=== PATIENT | male | born 1970 | race Caucasian/White ===

== ENCOUNTER 2020-02-22 16:48 | Inpatient (IN) | payer MEDICAID ==
[2020-02-22] VITALS (8 sets, daily range): BP systolic 84–127; BP diastolic 54–82
[~2020-02-22] VITALS: Ht 172.7 cm; Wt 95.3 kg
--- NOTE | 2020-02-22 16:55 | NUR ---
[email or web address], from street, drunk, had a bottle of vodka, BS 225. Patient a/ox1, responsive to stimuli, vomiting, attached to the ekg monitor tech.
[2020-02-22] MEDS ORDERED: IV NS 0.9% 1,000 ML BAG IV ONE (17:00)
--- NOTE | 2020-02-22 17:30 | NUR ---
PATIENT FOUND TO BE UNRESPONSIVE AND VOMITING, DR. CRUZ MADE AWARE AND PREP PATIENT FOR INTUBATION.
--- NOTE | 2020-02-22 17:42 | NUR ---
PATIENT PREPPED FOR INTUBATION. ADMINISTERED MEDICATIONS.
[2020-02-22 17:43] LABS: BASOPHILS # (AUTO) 0.1 /CMM (0.0-0.2); BASOPHILS % (AUTO) 0.5 % (0.0-2.0); EOSINOPHILS % (AUTO) 0.1 % (0.0-6.0); HEMATOCRIT 45 % (39-51); HEMOGLOBIN 15.1 g/dL (13.5-17.5); LYMPHOCYTES # (AUTO) 2.1 /CMM (0.8-4.8); MEAN CORPUSCULAR HGB CONC 34 g/dl (31.0-36.0); MEAN CORPUSCULAR VOLUME 91 fL (80-96); MONOCYTES # (AUTO) 0.7 /CMM (0.1-1.30); MONOCYTES % (AUTO) 6.1 % (2.0-12.0); NEUTROPHILS % (AUTO) 75.3 % (43.0-81.0); PLATELET COUNT (AUTO) 466 /CMM (150-450); RED BLOOD CELL COUNT(AUTO) 4.92 MIL/uL (4.5-6.0); WHITE BLOOD COUNT (AUTO) 11.9 K/uL (4.3-11.0)
--- NOTE | 2020-02-22 17:44 | NUR ---
PATIENT INTUBATED CO2 CONFIRMED ET SIZE 7.5 23CM ON THE LIP
--- NOTE | 2020-02-22 17:47 | NUR ---
MOVE SHEET SUBMITTED AND CALLED FOR ICU BED.
[2020-02-22] MEDS ORDERED: PROPOFOL 100 ML ONE ×2 (17:49→20:17)
--- NOTE | 2020-02-22 17:49 | NUR ---
XRAY AT BEDSIDE FOR PLACEMENT VERIFICATION.
[2020-02-22] MEDS: PROPOFOL 100 ML IV PRN ×3 (17:50→22:32)
[2020-02-22] MEDS ORDERED: PRAZ1CAP17 PO (17:56)
[2020-02-22] MEDS ORDERED: FENTANYL CITRAT IV 2,500 MCG in IV NS 0.9% 200 ML IV PRN (18:00)
--- NOTE | 2020-02-22 18:08 | NUR ---
RT PT CAME IN FOR ETOH INTOXICATION INTUBATED WITH DR CRUZ WITH 7.5 ETT SECURED AT 23CM AT LIP CHEST XRAY AND END TIDAL CONFIRMED PLACED ON FOLLOWING SETTINGS AC 18 550 +5 100% PENDING CT SCAN Addendum: 02/22/20 at 1809 by NESTOR RANDALL RT Amended: Links added.
[2020-02-22 18:12] LABS: CALCIUM, SERUM 8.6 mg/dL (8.5-10.1); CARBON DIOXIDE 23 mmol/L (21-32); CHLORIDE 100 mmol/L (98-107); GLUCOSE 137 mg/dL (74-106); POTASSIUM 3.1 mmol/L (3.5-5.1); SODIUM SERUM 138 mmol/L (136-145); UREA NITROGEN, BLOOD 12 mg/dL (7-18)
[2020-02-22 18:17] LABS: APPEARANCE,URINE CLEAR (CLEAR); BILIRUBIN,URINE NEGATIVE (NEGATIVE); BLOOD, URINE NEGATIVE Ery/uL (NEGATIVE); COLOR,URINE YELLOW (YELLOW); LEUKOCYTE ESTERASE ,URINE NEGATIVE (NEGATIVE); NITRITE, URINE NEGATIVE (NEGATIVE); PROTEIN,URINE NEGATIVE (NEGATIVE); UGLUCOSE NEGATIVE (NEGATIVE); UROBILINOGEN,URINE 0.2 EU/dL (0.2)
[2020-02-22 18:26] LABS: ALANINE AMINOTRANSFERASE 28 U/L (12-78); ALBUMIN 4.2 g/dL (3.4-5.0); ALCOHOL, BLOOD 489 mg/dL (0-0); ALKALINE PHOSPHATASE 78 U/L (46-116); ASPARTATE AMINOTRANSFERASE 17 U/L (15-37); BILIRUBIN,TOTAL 0.3 mg/dL (0.2-1.0)
[2020-02-22 18:27] LABS: ACETAMINOPHEN < 2 ug/ml (10-30)
--- NOTE | 2020-02-22 18:28 | NUR ---
patient came back from CT.
[2020-02-22] MEDS ORDERED: ROCURONIUM BROMIDE 50 MG/5 ML IV ONE ×3 (18:30→19:55)
[2020-02-22] MEDS ORDERED: ETOMIDATE 2 MG/ML VIAL IV ONE ×3 (18:30→19:55)
--- NOTE | 2020-02-22 18:40 | NUR ---
bed assigned= [id number]
[2020-02-22] MEDS ORDERED: POTASSIUM CL. PREMIX PERIPHER. 200 ML ONE (18:53)
[2020-02-22] MEDS ORDERED: PIPERACILLIN /TAZOBACTAM 3.375 G in IV D5W 50 ML IV ONE (19:00)
[2020-02-22] MEDS ORDERED: VANCOMYCIN 1 GM in IV D5W 250 ML IV ONE (19:00)
[2020-02-22] MEDS: POTASSIUM CL. PREMIX PERIPHER. 50 ML IV SCH ×4 (19:09→22:33)
--- NOTE | 2020-02-22 19:21 | NUR ---
REPORT GIVEN TO TAMARA LITTLE FOR GAYLE.
[2020-02-22 19:27] LABS: ABG BASE EXCESS -4.2 mmol/L; ABG OXYGEN SATURATION 98.6 % (92.0-98.5); ABG PCO2 45.3 mmHg (35.0-45.0); ABG PH 7.308 (7.350-7.450); ABG PO2 225.1 mmHg (75.0-100.0); AaDO2 80.4 mmHg; COHb 0.8 % (0.5-1.5); MetHb 0.6 % (0.0-1.5); O2Hb 97.2 % (94.0-97.0); SITE, ABG Right Radial
[2020-02-22] MEDS ORDERED: ALBUTEROL FS 2.5 MG/3 ML VIAL.NEB NEB PRN (19:30)
[2020-02-22] MEDS ORDERED: MAGNESIUM HYDROXIDE 30 ML UDC PO PRN (19:30)
[2020-02-22] MEDS ORDERED: ACETAMINOPHEN 325 MG TABLET PO PRN (19:30)
[2020-02-22] MEDS ORDERED: MAG HYDROX/AL HYDROX/SIMETH 30 ML UDC PO PRN (19:30)
[2020-02-22] MEDS ORDERED: Z GUARD REMEDY 2 OZ OINT TP PRN (19:30)
[2020-02-22] MEDS ORDERED: ONDANSETRON HCL/PF 4 MG/2 ML VIAL IVP PRN (19:30)
--- NOTE | 2020-02-22 19:45 | NUR ---
COVID SWAB SENT.
[2020-02-22] MEDS ORDERED: VANCOMYCIN 1.25 GM in IV D5W 250 ML IV SCH (20:00)
--- NOTE | 2020-02-22 20:50 | NUR ---
CALLED LAB REGARDING COVID SWAB, WAS TOLD TEN MORE MINS
[2020-02-22] MEDS ORDERED: ASPIRIN 300 MG/SUPP.RECT RC STA (21:00)
--- NOTE | 2020-02-22 21:02 | NUR ---
PT PLACED ON 100MCG/KG/MIN PROP. AMAN DURHAM MD.
--- NOTE | 2020-02-22 21:47 | NUR ---
PT TRANSFERED PER ACLS PROTOCOL
--- NOTE | 2020-02-22 21:49 | NUR ---
RN NOTE RECEIVED PT FROM ER ACCOMPANIED BY RN, RT, AND EMT. PT INTUBATED AND ON MECHANICAL VENT. RESPIRATIONS EVEN AND UNLABORED. PT SEDATED. RECEIVED PT WITH PROPOFOL RUNNING AT 100MCG/KG/MIN. ALL IV LINES FLUSHED AND PATENT. PT WITH MCCALL CATHETER DRAINING CLEAR YELLOW URINE. PT PUT ON BED SIDE MONITOR. SR ON THE MICROBIOLOGY LAB ASSISTANT. VITAL SIGNS TAKEN AND STABLE. PT RESTRAINED ORDERED. COMPREHENSIVE PHYSICAL ASSESSMENT COMPLETED. PT WITH OGT AT 58CM AND CONNECTED TO LOW INTERMITTENT SUCTION PER MD ORDER. SAFETY MEASURES IN PLACE, CALL LIGHT WITHIN REACH, AMBU BAG AT BEDSIDE. WILL MONITOR,
--- NOTE | 2020-02-22 21:49 | NUR ---
RT pt received from er on mechanical vent with current settings. pt orally intubated, size 7.5, 23 at lip, secure. vent plugged in to red outlet. ambu bag at [facility]. no sob/no resp distress at this time. will continue to monitor
--- NOTE | 2020-02-22 22:05 | NUR ---
RN NOTE SEEN AND EXAMINED BY ALLEN VISUAL ARTIST AT BEDSIDE. WITH ORDER TO GIVE ATIVAN 1MG IV Q2H PRN FOR AGITATION. ALLEN WITH ORDER WITH PROPOFOL IV DRIP: OKAY TO TITRATE UP TO 100MCG/KG/MIN. ORDER NOTED AND CARRIED OUT.
[2020-02-22] MEDS: IV NS 0.9% 1,000 ML IV PRN (22:25)
[2020-02-22] MEDS: PANTOPRAZOLE 40 MG VIAL IV SCH (22:36)
[2020-02-22] MEDS: ENOXAPARIN SODIUM 40 MG/0.4 ML DISP.SYRIN SQ SCH (22:39)
--- NOTE | 2020-02-22 23:05 | NUR ---
RN NOTE RECEIVED ALERT FOR LACTIC ACID 4.3. ALLEN FERMIN FLEET MAINTENANCE MANAGER NOTIFIED WITH ORDER TO ADMINISTER NS 1L BOLUS IV X 1. ORDER NOTED AND CARRIED OUT.
[2020-02-22] MEDS: LORAZEPAM INJ 2 MG/ML VIAL IV PRN (23:06)
[2020-02-22] MEDS ORDERED: ASPIRIN 300 MG/SUPP.RECT RC ONE (23:11)
[2020-02-22] MEDS ORDERED: IV NS 0.9% 1,000 ML IV ONE (23:30)
[2020-02-22] MEDS: PIPERACILLIN /TAZOBACTAM 3.375 G in IV D5W 50 ML IV SCH (23:54)
[2020-02-23] VITALS (52 sets, daily range): BP systolic 88–136; BP diastolic 46–91
[2020-02-23] MEDS: PROPOFOL 100 ML IV PRN ×5 (00:15→07:53)
--- NOTE | 2020-02-23 00:37 | NUR ---
RN NOTE WITH VENT ALARMING. ATTEMPTED TO SUCTION PT. NOTED THAT PATIENT IS BITING ON ET TUBE. NOTIFIED RT. Addendum: 02/23/20 at 0113 by TAMARA SCHWARTZ RN RT VERNA ABLE TO PLACE BITE BLOCK.
--- NOTE | 2020-02-23 00:55 | NUR ---
RN NOTE PT INTUBATED AND SEDATED. NO FAMILY MEMBERS LISTED ON FACESHEET. UNABLE TO OBTAIN CONSENT FOR FLU VACCINE. WILL ENDORSE TO MORNING RN TO FOLLOW UP.
[2020-02-23] MEDS: VANCOMYCIN 1 GM in IV D5W 250 ML IV SCH ×3 (02:08→19:13)
--- NOTE | 2020-02-23 04:15 | NUR ---
RN NOTE PT SEDATED WHILE ON PROPOFOL 80MCG/KG/MIN. NO SIGNS OF AGITATION AT THIS TIME. VITAL SIGNS STABLE. GOOD URINE OUTPUT NOTED VIA MCCALL CATHETER. ENGINEERING GROUP MANAGER AT BEDSIDE DRAWING AM LABS. WILL CONTINUE TO MONITOR.
[2020-02-23 04:43] LABS: BASOPHILS % (AUTO) 0.1 % (0.0-2.0); EOSINOPHILS % (AUTO) 0.2 % (0.0-6.0); HEMATOCRIT 43 % (39-51); LYMPHOCYTES # (AUTO) 2.2 /CMM (0.8-4.8); LYMPHOCYTES % (AUTO) 21.9 % (20.0-44.0); MEAN CORPUSCULAR HGB CONC 35 g/dl (31.0-36.0); MEAN CORPUSCULAR VOLUME 91 fL (80-96); MONOCYTES # (AUTO) 0.9 /CMM (0.1-1.30); MONOCYTES % (AUTO) 8.7 % (2.0-12.0); NEUTROPHILS # (AUTO) 7.1 /CMM (1.8-8.9); NEUTROPHILS % (AUTO) 69.1 % (43.0-81.0); PLATELET COUNT (AUTO) 426 /CMM (150-450); RED BLOOD CELL COUNT(AUTO) 4.75 MIL/uL (4.5-6.0); WHITE BLOOD COUNT (AUTO) 10.3 K/uL (4.3-11.0)
[2020-02-23 04:55] LABS: APPEARANCE,URINE CLEAR (CLEAR); BILIRUBIN,URINE NEGATIVE (NEGATIVE); BLOOD, URINE NEGATIVE Ery/uL (NEGATIVE); COLOR,URINE YELLOW (YELLOW); LEUKOCYTE ESTERASE ,URINE NEGATIVE (NEGATIVE); NITRITE, URINE NEGATIVE (NEGATIVE); PROTEIN,URINE NEGATIVE (NEGATIVE); UGLUCOSE NEGATIVE (NEGATIVE); UROBILINOGEN,URINE 0.2 EU/dL (0.2)
[2020-02-23 05:01] LABS: CALCIUM, SERUM 7.8 mg/dL (8.5-10.1); MAGNESIUM 2.4 mg/dL (1.8-2.4); PHOSPHORUS 3.1 mg/dL (2.5-4.9); POTASSIUM 3.9 mmol/L (3.5-5.1)
[2020-02-23] MEDS: PIPERACILLIN /TAZOBACTAM 3.375 G in IV D5W 50 ML IV SCH ×4 (05:12→23:50)
[2020-02-23] MEDS: LORAZEPAM INJ 2 MG/ML VIAL IV PRN ×2 (05:51→21:39)
--- NOTE | 2020-02-23 06:51 | NUR ---
RN NOTE PT SEDATED WHILE ON PROPOFOL. INTUBATED AND ON MECHANICAL VENT. TOLERATING SETTINGS WELL. RESPIRATIONS EVEN AND UNLABORED, VITAL SIGNS STABLE VIA BED SIDE MONITOR. IV FLUIDS RUNNING ORDERED. ALL IV LINES FLUSHED AND WITHOUT COMPLICATIONS NOTED AT SITES. OGT IN PLACE VERIFIED BY AUSCULTATION. CURRENTLY CONNECTED TO LOW INTERMITTENT SUCTION ORDERED DRAINING LIGHT BROWN OUTPUT. MCCALL CATHETER PATENT AND IN PLACE DRAINING CLEAR YELLOW URINE. ALL NEEDS MET AND ATTENDED TO, SAFETY MEASURES IN PLACE, WILL ENDORSE TO MORNING RN FOR CONTINUAITON OF CARE
--- NOTE | 2020-02-23 07:54 | NUR ---
WOUND CARE CONSULT: PT PRESENTS WITH LEFT KNEE DRY SCAB, PRESENT ON ADMISSION. PT IS ON CARLOS ISOFLEX LOW AIRLOSS BED. ALL SKIN PROTECTION RECOMMENDATIONS DISCUSSED WITH NURSING STAFF. WILL SEE PRN. IN AGREEMENT WITH PLAN OF CARE.
--- NOTE | 2020-02-23 08:00 | NUR ---
ICU/RN: INITIAL NOTES,AM RECEIVED REPORT FROM NIGHT NURSE. PT INTUBATED AND SEDATED, ON VENT SETTINGS ORDERED BY MD, ETT 7.5, 23CM AT THE LIP. NO ACUTE DISTRESS NOTED. PT SEDATED ON 75MCG/KG/MIN DIPRIVAN, STILL ABLE TO OPEN EYES AND FOLLOW SOME COMMANDS. SINUS ON TELE. OGT TO LIS, WILL MONITOR OUTPUT. MCCALL IN PLACE, DRAINING YELLOW URINE. SKIN INTACT, WILL TURN AND REPOSITION. ALL NEEDS WILL BE ATTENDED TO, SAFETY MEASURES TAKEN, BED IN LOW POSITION, SIDE RAILS UP, CALL LIGHT WITHIN REACH.
[2020-02-23] MEDS: IV NS 0.9% 1,000 ML IV PRN ×3 (09:16→23:58)
--- NOTE | 2020-02-23 10:10 | NUR ---
ICU/RN: PT TITRATED OFF DIPRIVAN FOR SEDATION VACATION AND POSSIBLE WEANING. PT AWAKE, FOLLOWING COMMANDS. WILL CONTINUE TO MONITOR AND ASSESS.
--- NOTE | 2020-02-23 10:47 | NUR ---
VENT CHANGES BELOW MADE FOR WEANING TRIAL PER DR. SAENZ: CPAP 5 PS 10 FIO2 40% Addendum: 02/23/20 at 1048 by PARIS MORENO RT Amended: Links added.
--- NOTE | 2020-02-23 10:50 | NUR ---
ICU/RN: PT PLACED ON CPAP MODE PER MD. CPAP 5, PS 10, 40%, PEEP 5. WILL CONTINUE TO MONITOR.
--- NOTE | 2020-02-23 11:15 | NUR ---
@ 1115 pt is awake and follow commands extubated as order. pt Spo2 on room air is 97% no sob noted. Addendum: 02/23/20 at 1126 by PARIS MORENO RT Amended: Links added.
--- NOTE | 2020-02-23 11:15 | NUR ---
ICU/RN: PT AWAKE, ALERT, FOLLOWING COMMANDS. PT EXTUBATED, ON ROOM AIR SATURATING 96-97%. NO DISTRESS. WILL CONTINUE TO MONITOR. NO STRIDOR.
[2020-02-23 12:35] LABS: THYROID STIMULATING HORMONE 1.209 uIU/mL (0.358-3.74)
--- NOTE | 2020-02-23 12:53 | NUR ---
SIVLANO spoke to the pt.'s nurse, RP who stated that the pt. was just extubated and not currently interviewable. Per RP, pt. stated he does not have any family. RP to call SW when pt. is interviewable and has a phone in his room. SW will be available as needed.
--- NOTE | 2020-02-23 15:00 | NUR ---
ICU/RN: PT PULLED OUT MCCALL CATH. MINOR BLEEDING NOTED, WILL CONTINUE TO MONITOR.
--- NOTE | 2020-02-23 16:00 | NUR ---
ICU/RN: BEDSIDE SWALLOW EVAL DONE, NO ISSUES NOTED. WILL CONTINUE TO MONITOR. SWALLOW EVAL ORDERED FOR TOMORROW
--- NOTE | 2020-02-23 19:05 | NUR ---
ICU/RN: ENDING NOTES,AM REPORT WILL BE ENDORSED TO NIGHT NURSE FOR GAYLE. PT ALERT, AWAKE, FOLLOWS COMMANDS. PT EXTUBATED TODAY, ON ROOM AIR,. TRANSFER ORDERS RECEIVED. MCCALL PULLED OUT, SOME HEMATURIA NOTED, MD AWARE. ALL NEEDS ATTENDED TO, SAFETY MEASURES TAKEN, BED IN LOW POSITION, SIDE RAILS UP, CALL LIGHT WITHIN REACH.
--- NOTE | 2020-02-23 19:20 | NUR ---
RN NOTE RECEIVED PT AWAKE AND ALERT IN BED, S/P EXTUBATION TODAY. RESPIRATIONS EVEN AND UNLABORED. ON ROOM AIR. VITAL SIGNS STABLE VIA BEDSIDE MONITOR. URINAL AT BEDSIDE NOTED WITH PINKED TINGED URINE. DENIES PAIN OR DISCOMFORT AT THIS TIME. CALL LIGHT WITHIN REACH, SAFETY MEASURES IN PLACE, WILL MONITOR.
--- NOTE | 2020-02-23 21:16 | NUR ---
RN NOTE REPORT GIVEN TO KEATON LITTLE FOR GAYLE. PT TRANSFERRED TO ROOM 108 UNDER ACLS PROTOCOL ACCOMPANIED BY PRESS TENDER SMOKE SIGNAL AND 1 RN.
--- NOTE | 2020-02-23 21:30 | NUR ---
RN STACY NOTE, AT 2118 RECEIVED PATIENT FROM ICU VIA BED, A/O X4 BREATHING EVEN AND UNLABORED AT ROOM AIR, NO SOB/ACUTE DISTRESS NOTED AT THIS TIME, ATTACHED TO TELE MONITOR AND SR NOTED WITH HR 70S-80S AT THIS TIME, RIGHT AC AND LEFT FA IV LINES PATENT AND INTACT, ALL NEEDS MET AND ATTENDED TO, SAFETY MEASURES IN PLACE, WILL CONTINUE TO MONITOR CLOSELY. 98.4, 89. 9% 110/60, 20.
[2020-02-23] MEDS: PANTOPRAZOLE 40 MG VIAL IV SCH (21:44)
[2020-02-23] MEDS: ENOXAPARIN SODIUM 40 MG/0.4 ML DISP.SYRIN SQ SCH (22:02)
[2020-02-23] MEDS: ZOLPIDEM TARTRATE 5 MG TABLET PO PRN (23:47)
[2020-02-24] VITALS: BP 114/70
[2020-02-24] MEDS: MENTHOL/CETYLPYRD (CEPACOL) 1 LOZ LOZENGE PO PRN ×2 (00:08→04:44)
[2020-02-24] MEDS: VANCOMYCIN 1 GM in IV D5W 250 ML IV SCH ×3 (03:00→18:31)
[2020-02-24 04:00] VITALS: BP 97/50
[2020-02-24] MEDS: PIPERACILLIN /TAZOBACTAM 3.375 G in IV D5W 50 ML IV SCH ×4 (05:59→23:46)
[2020-02-24 06:40] LABS: BASOPHILS % (AUTO) 0.3 % (0.0-2.0); EOSINOPHILS % (AUTO) 0.6 % (0.0-6.0); HEMATOCRIT 37 % (39-51); HEMOGLOBIN 12.5 g/dL (13.5-17.5); LYMPHOCYTES # (AUTO) 1.7 /CMM (0.8-4.8); LYMPHOCYTES % (AUTO) 18.1 % (20.0-44.0); MEAN CORPUSCULAR HGB CONC 34 g/dl (31.0-36.0); MEAN CORPUSCULAR VOLUME 91 fL (80-96); MONOCYTES # (AUTO) 1.1 /CMM (0.1-1.30); MONOCYTES % (AUTO) 11.3 % (2.0-12.0); NEUTROPHILS # (AUTO) 6.6 /CMM (1.8-8.9); NEUTROPHILS % (AUTO) 69.7 % (43.0-81.0); PLATELET COUNT (AUTO) 431 /CMM (150-450); RED BLOOD CELL COUNT(AUTO) 4.07 MIL/uL (4.5-6.0); WHITE BLOOD COUNT (AUTO) 9.4 K/uL (4.3-11.0)
[2020-02-24 06:47] LABS: ALANINE AMINOTRANSFERASE 26 U/L (12-78); ALBUMIN 3.2 g/dL (3.4-5.0); ALKALINE PHOSPHATASE 74 U/L (46-116); ASPARTATE AMINOTRANSFERASE 23 U/L (15-37); BILIRUBIN,TOTAL 0.6 mg/dL (0.2-1.0); CALCIUM, SERUM 7.8 mg/dL (8.5-10.1); CARBON DIOXIDE 26 mmol/L (21-32); CHLORIDE 106 mmol/L (98-107); CREATININE 0.9 mg/dL (0.6-1.3); GLUCOSE 94 mg/dL (74-106); MAGNESIUM 2.2 mg/dL (1.8-2.4); POTASSIUM 3.5 mmol/L (3.5-5.1); SODIUM SERUM 141 mmol/L (136-145); TOTAL PROTEIN, SERUM 6.3 g/dL (6.4-8.2); UREA NITROGEN, BLOOD 12 mg/dL (7-18)
--- NOTE | 2020-02-24 07:00 | NUR ---
WASTEWATER TREATMENT SUPERVISOR CLOSING NOTE, PATIENT SLEEPING AT THIS TIME, BREATHING EVEN AND UNLABORED AT ROOM AIR, NO SOB/ACUTE DISTRESS NOTED AT THIS TIME, TOLERATED ROOM AIR, CONTINUE SR NOTED WITH HR 70S-80S, RIGHT AC AND LEFT FA IV LINES PATENT AND INTACT, CEPACOL X2 GIVEN FOR SORE THROAT DISCOMFORT, ALL NEEDS MET AND ATTENDED, SAFETY MEASURES IN PLACE, WILL ENDORSE CONTINUITY OF CARE TO ONCOMING NURSE.
[2020-02-24 08:00] VITALS: BP 140/86
[2020-02-24] MEDS: LORAZEPAM INJ 2 MG/ML VIAL IV PRN (08:23)
[2020-02-24] MEDS: MORPHINE SULFATE INJ 2 MG/ML DISP.SYRIN IV PRN ×5 (09:30→23:46)
[2020-02-24] MEDS: IV NS 0.9% 1,000 ML IV PRN (10:00)
[2020-02-24 12:00] VITALS: BP 140/86
[2020-02-24] MEDS ORDERED: IOHEXOL-300 100 ML VIAL IV ONE (12:33)
[2020-02-24] MEDS ORDERED: IV NS 0.9% 250 ML IV ONE (12:33)
--- NOTE | 2020-02-24 15:28 | NUR ---
Revival Clerk met the patient at bedside. Patient is a 49 year-old male. Patient is alert and oriented x4. Patient confirmed date of , social security number, and current mailing address. Patient is homeless and reports to be homeless for 4 years. Patient reports that he is having a difficult time speaking as he has pneumonia and has a difficult time breathing. Patient reports that he is feeling a bit better now but upon discharge would like to be placed at a facility that can help him recuperate. Patient stated he would like this for the patient to return to his old self and feel better. Patient asked this SW to speak with MD's regarding discharge plan to move forward with possible placement. Patient asked this SW to please leave as he wanted to rest. Plan: SW to follow up with case management regarding placement.
[2020-02-24 16:00] VITALS: BP 128/82
[2020-02-24] MEDS: CHLORDIAZEPOXIDE HCL 25 MG CAPSULE PO SCH ×2 (17:26→17:27)
--- NOTE | 2020-02-24 19:25 | NUR ---
RN OPENING NOTES: RECEIVED PT A/OX4 IN BED RESTING COMFORTABLY. PATIENT IN NO S/SX OF ACUTE DISTRESS AT THIS TIME. NO SOB NOTED. PATIENT'S BREATHING IS EVEN AND UNLABORED. PATIENT IS ON ROOM AIR; TOLERATING WELL WITH 100 02 SAT. PATIENT ON TELE MONITORING READING SINUS RHYTHM HR IS @70s.NOTED IV SITE ON R AC #18 AND L HAND #20 ; PATENT, INTACT AND FLUSHING WELL NO S/S OF INFECTION OR INFILTRATION. WITH IV FLUID RUNNING ORDERED. SAFETY MEASURES HAVE BEEN PROVIDED AND IMPLEMENTED. PATIENT BED ALARM IS ON. HEAD OF BED ELEVATED. BED IS LOCKED, IN LOWEST POSITION AND SIDE RAILS UP. CALL LIGHT WITHIN REACH OF THE PATIENT. ISOLATION/SAFETY PRECAUTIONS IN PLACE. WILL CONTINUE TO MONITOR AND REASSESS FOR ANY CHANGES AND WILL CARRY OUT ANY ONGOING AND ACTIVE MD ORDER.
[2020-02-24 20:00] VITALS: BP 125/82
[2020-02-24] MEDS: PANTOPRAZOLE 40 MG VIAL IV SCH (20:54)
[2020-02-24] MEDS: ENOXAPARIN SODIUM 40 MG/0.4 ML DISP.SYRIN SQ SCH (20:55)
--- NOTE | 2020-02-24 22:00 | NUR ---
RN NOTES NO CHANGE IN PATIENT CONDITION AT THIS TIME PATIENT VITALS STABLE, NO SIGNS OF ACUTE RESPIRATORY DISTRESS. ORNAMENTAL PLASTERER HELPER MADE AWARE. WILL CONTINUE TO MONITOR AND REASSESS FOR ANY CHANGES THROUGHOUT THE SHIFT.
[2020-02-25] MEDS: LORAZEPAM INJ 2 MG/ML VIAL IV PRN (01:11)
--- NOTE | 2020-02-25 03:00 | NUR ---
RN NOTES NO CHANGE IN PATIENT CONDITION AT THIS TIME PATIENT VITALS STABLE, NO SIGNS OF ACUTE RESPIRATORY DISTRESS. CATTLE BROKER MADE AWARE. WILL CONTINUE TO MONITOR AND REASSESS FOR ANY CHANGES THROUGHOUT THE SHIFT.
[2020-02-25] MEDS: VANCOMYCIN 1 GM in IV D5W 250 ML IV SCH ×3 (03:19→18:06)
[2020-02-25] MEDS: IV NS 0.9% 1,000 ML IV PRN ×2 (03:34→16:51)
[2020-02-25 04:00] VITALS: BP 106/74
[2020-02-25] MEDS: PIPERACILLIN /TAZOBACTAM 3.375 G in IV D5W 50 ML IV SCH ×4 (05:59→23:33)
[2020-02-25 06:04] LABS: BASOPHILS # (AUTO) 0.1 /CMM (0.0-0.2); BASOPHILS % (AUTO) 1.1 % (0.0-2.0); HEMATOCRIT 36 % (39-51); HEMOGLOBIN 12.4 g/dL (13.5-17.5); LYMPHOCYTES % (AUTO) 25.1 % (20.0-44.0); MEAN CORPUSCULAR HGB CONC 34 g/dl (31.0-36.0); MEAN CORPUSCULAR VOLUME 91 fL (80-96); MONOCYTES # (AUTO) 0.8 /CMM (0.1-1.30); MONOCYTES % (AUTO) 10.8 % (2.0-12.0); NEUTROPHILS # (AUTO) 4.6 /CMM (1.8-8.9); PLATELET COUNT (AUTO) 362 /CMM (150-450); RED BLOOD CELL COUNT(AUTO) 3.97 MIL/uL (4.5-6.0); WHITE BLOOD COUNT (AUTO) 7.8 K/uL (4.3-11.0)
--- NOTE | 2020-02-25 06:46 | NUR ---
RN CLOSING NOTES PATIENT REMAINS IN ROOM IN NO SIGNS OF RESPIRATORY DISTRESS. PATIENT SATURATING 97% OF 02. VITAL SIGNS WNL. IV LINE MAINTAINED, INTACT, PATENT AND FLUSHING, NO SITE REDNESS OR INFILTRATION. SAFETY PRECAUTIONS IN PLACE AND COMFORT MEASURES RENDERED. BED IN LOWEST POSITION, CALL LIGHT WITHIN REACH, BREAKS ON, SIDE RAILS UP. ALL NEEDS ATTENDED, MEDICATIONS GIVEN SCHEDULED AND ORDERED ; SHIFT ASSESSMENT/BEDBATH/SKIN CARE DONE. PATIENT KEPT CLEAN AND DRY. WILL ENDORSE TO INCOMING SHIFT FOR GAYLE WITH ALL PERTINENT INFO REGARDING PATIENT STATUS.
[2020-02-25 06:55] LABS: CALCIUM, SERUM 7.8 mg/dL (8.5-10.1); CREATININE 0.7 mg/dL (0.6-1.3); MAGNESIUM 2.2 mg/dL (1.8-2.4); PHOSPHORUS 3.5 mg/dL (2.5-4.9); POTASSIUM 3.5 mmol/L (3.5-5.1)
--- NOTE | 2020-02-25 07:29 | NUR ---
MS RN OPENING NOTES RECEIVED PATIENT IN BED, AWAKE, A/O X4. PATIENT ON ROOM AIR; BREATHING IS EVEN AND UNLABORED; NO SOB PRESENT AT THIS TIME. COMPLAINING OF PAIN AND ASKING FOR PAIN MEDICATIONS; WILL ASSIST. IV ACCESS ON LAC G#20 PRESENT AND INTACT. SAFETY PRECAUTIONS IN PLACE; BED IN LOW POSITION AND LOCKED, RAILS UP X2, CALL LIGHT WITHIN REACH. WILL CONTINUE TO MONITOR PATIENT.
[2020-02-25] MEDS: MORPHINE SULFATE INJ 2 MG/ML DISP.SYRIN IV PRN ×3 (07:59→20:29)
[2020-02-25] MEDS: CHLORDIAZEPOXIDE HCL 25 MG CAPSULE PO SCH ×2 (08:01→16:10)
[2020-02-25] MEDS: PANTOPRAZOLE 40 MG TABLET.DR PO SCH ×2 (11:30→11:35)
[2020-02-25 12:06] VITALS: BP 142/69
--- NOTE | 2020-02-25 14:18 | NUR ---
MS RN NOTES PATIENT STATES GENERALIZED PAIN 8/10 AND REQUESTING PRN PAIN MEDICATION.
[2020-02-25] MEDS: MENTHOL/CETYLPYRD (CEPACOL) 1 LOZ LOZENGE PO PRN (17:37)
--- NOTE | 2020-02-25 17:40 | NUR ---
MS RN NOTES PRN LOZENGE ADMINISTERED FOR SOAR THROAT PER PATIENT REQUEST.
--- NOTE | 2020-02-25 19:10 | NUR ---
MS RN CLOSING NOTES PATIENT IN BED, AWAKE, A/O X4. PATIENT ON ROOM AIR; BREATHING IS EVEN AND UNLABORED; NO SOB PRESENT DURING SHIFT. PAIN TREATED WITH PRN MEDICATION PER MD ORDER. IV ACCESS ON LAC G#20 PRESENT AND INTACT. ALL NEEDS ATTENDED THROUGHOUT THE DAY. SAFETY PRECAUTIONS IN PLACE; BED IN LOW POSITION AND LOCKED, RAILS UP X2, CALL LIGHT WITHIN REACH. WILL ENDORSE TO FOOD TECHNOLOGIST NURSE.
--- NOTE | 2020-02-25 19:25 | NUR ---
RN NOTE RECEIVED PATIENT IN BED, AWAKE, A/O X4. PATIENT ON ROOM AIR; BREATHING IS EVEN AND UNLABORED; NO SOB PRESENT. IV TO RAC PATENT INTACT AND FLUSHING WELL. SAFETY PRECAUTIONS IN PLACE; BED LOCKED AND IN LOW POSITION. SIDE RAILS UP X2, CALL LIGHT WITHIN REACH WILL CONTINUE TO MONITOR PT..
[2020-02-25 20:00] VITALS: BP 127/81
[2020-02-25] MEDS: ENOXAPARIN SODIUM 40 MG/0.4 ML DISP.SYRIN SQ SCH (20:32)
[2020-02-25] MEDS: ZOLPIDEM TARTRATE 5 MG TABLET PO PRN (23:52)
[2020-02-26] MEDS: MORPHINE SULFATE INJ 2 MG/ML DISP.SYRIN IV PRN ×4 (02:45→21:20)
[2020-02-26] MEDS: VANCOMYCIN 1 GM in IV D5W 250 ML IV SCH ×2 (02:46→13:39)
[2020-02-26 04:00] VITALS: BP 125/76
[2020-02-26] MEDS: IV NS 0.9% 1,000 ML IV PRN (04:03)
[2020-02-26] MEDS: PIPERACILLIN /TAZOBACTAM 3.375 G in IV D5W 50 ML IV SCH (06:15)
[2020-02-26 06:29] LABS: BASOPHILS % (AUTO) 0.3 % (0.0-2.0); EOSINOPHILS % (AUTO) 3.6 % (0.0-6.0); HEMATOCRIT 38 % (39-51); HEMOGLOBIN 12.9 g/dL (13.5-17.5); LYMPHOCYTES # (AUTO) 1.8 /CMM (0.8-4.8); MEAN CORPUSCULAR HGB CONC 34 g/dl (31.0-36.0); MEAN CORPUSCULAR VOLUME 90 fL (80-96); MONOCYTES # (AUTO) 0.8 /CMM (0.1-1.30); MONOCYTES % (AUTO) 10.1 % (2.0-12.0); NEUTROPHILS # (AUTO) 4.7 /CMM (1.8-8.9); PLATELET COUNT (AUTO) 400 /CMM (150-450); WHITE BLOOD COUNT (AUTO) 7.7 K/uL (4.3-11.0)
[2020-02-26 06:38] LABS: CALCIUM, SERUM 8.5 mg/dL (8.5-10.1); CREATININE 0.9 mg/dL (0.6-1.3); PHOSPHORUS 3.9 mg/dL (2.5-4.9); POTASSIUM 3.4 mmol/L (3.5-5.1)
[2020-02-26] MEDS ORDERED: PANTOPRAZOLE 40 MG TABLET.DR PO SCH (07:30)
--- NOTE | 2020-02-26 07:30 | NUR ---
RN MS NOTE: PT RECEIVED IN BED, EYES OPEN, A/OX4. ON RA, O2 SATURATION 96%. NO SIGNS OF RESPIRATORY DISTRESS OR SOB. PT IS BED BOUND, LEFT KNEE ABRASION AND LEFT FOOT DRYNESS. PT HAS RAC #18 RUNNING NS @ 125 ML/HR. CALL LIGHT WITHIN REACH. BED IN LOCKED LOWEST POSITION. ALL SAFETY MEASRUES IN PLACE. WILL CONTINUE TO MONITOR CLOSELY.
--- NOTE | 2020-02-26 07:38 | NUR ---
RN NOTE PT REMAINED STABLE THROUGHOUT THE SHIFT, NO CHANGES. VS SATBLE REQUESTED PAIN MEDICATION X 2. PT CURRENTLY ASLEEP. IV TO RAC PATENT AND INTACT. ENDORSED TO AM RM FOR GAYLE
[2020-02-26] MEDS: PANTOPRAZOLE 40 MG TABLET.DR PO SCH (08:44)
[2020-02-26] MEDS: CHLORDIAZEPOXIDE HCL 25 MG CAPSULE PO SCH ×2 (08:44→17:19)
[2020-02-26] MEDS: INFLUENZA VACCINE 2020-21 0.5 ML DISP.SYRIN IM ONE ×2 (10:00→16:06)
[2020-02-26 12:00] VITALS: BP 130/80
[2020-02-26] MEDS: POTASSIUM CHLORIDE 20 MEQ TAB.PRT.SR PO SCH ×4 (12:31→14:00)
--- NOTE | 2020-02-26 15:27 | NUR ---
RN MS NOTE: 40 MEQ POTASSIUM GIVEN TO PT, BUT DOCUMENTED UNDER PREVIOUSLY D/C TIME AT 1000 INSTEAD OF RESCHEDULED MED TIME OF 1300. 1300 DOSE DOCUMENTED NON-ADMIN.
--- NOTE | 2020-02-26 19:26 | NUR ---
RN MS NOTE: NO CHANGE OF CONDITION THIS SHIFT. PT ON RA O2 SATURATION 97%. NO RESPIRATORY DISTRESS OR SOB. PT IN BED LOCKED LOWEST POSITION. RAC #[address], BUT INFILTRATED. ENDORSED TO ONCOMING RN. ALL SAFETY MEASURES IN PLACE. REPORT GIVEN TO ONCOMING RN FOR GAYLE.
--- NOTE | 2020-02-26 19:50 | NUR ---
RN NOTE PT RECEIVED IN BED A/A/O X4. PT IS ON ROOM AIR SATING 98% , HAS UNLABORED BREATHING. SAFETY MEASURES IN PLACE CALL LIGHT IN REACH, BED AT LOWEST POSITION ,LOCKED ,SIDE RAILS UPX2.
[2020-02-26 20:00] VITALS: BP 126/66
[2020-02-26] MEDS: ENOXAPARIN SODIUM 40 MG/0.4 ML DISP.SYRIN SQ SCH (21:21)
[2020-02-27] MEDS: MORPHINE SULFATE INJ 2 MG/ML DISP.SYRIN IV PRN ×2 (03:30→09:20)
[2020-02-27 04:00] VITALS: BP 121/61
--- NOTE | 2020-02-27 07:00 | NUR ---
MS RN NOTES RECEIVED PATIENT IN BED RESTING COMFORTABLY, EASILY AROUSED. A/O X4. RESPIRATIONS EVEN AND UNLABORED. 02 SAT 97% IN ROOM AIR. WITH LEFT EXTERNAL JUGULAR #20G, INTACT AND PATENT, FLUSHING WELL. BED LOCKED AND IN LOWEST POSITION. SAFETY MEASURES IMPLEMENTED. CALL LIGHT WITHIN REACH.
--- NOTE | 2020-02-27 07:21 | NUR ---
RN NOTE PT REMAINED STABLE DURING MY SHIFT. REPORT GIVEN TO INCOMING SHIFT FOR GAYLE.
[2020-02-27 07:27] LABS: BASOPHILS % (AUTO) 0.4 % (0.0-2.0); EOSINOPHILS % (AUTO) 2.5 % (0.0-6.0); HEMATOCRIT 40 % (39-51); HEMOGLOBIN 13.5 g/dL (13.5-17.5); LYMPHOCYTES # (AUTO) 1.7 /CMM (0.8-4.8); MEAN CORPUSCULAR HGB CONC 34 g/dl (31.0-36.0); MEAN CORPUSCULAR VOLUME 91 fL (80-96); MONOCYTES # (AUTO) 0.7 /CMM (0.1-1.30); MONOCYTES % (AUTO) 7.2 % (2.0-12.0); NEUTROPHILS # (AUTO) 6.6 /CMM (1.8-8.9); NEUTROPHILS % (AUTO) 71.9 % (43.0-81.0); PLATELET COUNT (AUTO) 387 /CMM (150-450); RED BLOOD CELL COUNT(AUTO) 4.37 MIL/uL (4.5-6.0); WHITE BLOOD COUNT (AUTO) 9.2 K/uL (4.3-11.0)
[2020-02-27 08:00] VITALS: BP 120/76
[2020-02-27] MEDS: PANTOPRAZOLE 40 MG TABLET.DR PO SCH (08:11)
[2020-02-27] MEDS: CHLORDIAZEPOXIDE HCL 25 MG CAPSULE PO SCH ×2 (08:12→17:27)
[2020-02-27 08:14] LABS: CALCIUM, SERUM 8.8 mg/dL (8.5-10.1); CREATININE 0.7 mg/dL (0.6-1.3); MAGNESIUM 1.9 mg/dL (1.8-2.4); PHOSPHORUS 3.7 mg/dL (2.5-4.9); POTASSIUM 3.6 mmol/L (3.5-5.1)
--- NOTE | 2020-02-27 14:22 | NUR ---
PATIENT COMPLAIN OF BACK PAIN AND WANTED NORCO 2TBS. PER PATIENT PRIMARY MD DISCONTINUE THE MORPHINE.
[2020-02-27] MEDS ORDERED: HYDROCODONE/APAP 5/325MG TABLET PO PRN (14:30)
[2020-02-27] MEDS: HYDROCODONE/APAP 5/325MG TABLET PO PRN ×3 (14:43→23:29)
[2020-02-27 16:00] VITALS: BP 125/69
--- NOTE | 2020-02-27 19:28 | NUR ---
MS RN NOTES ALL DUE MEDICATIONS ADMINISTERED. ALL NEED MET. NO ACUTE CHANGES NOTED DURING AM SHIFT. ENDORSED CARE TO PM SHIFT.
--- NOTE | 2020-02-27 19:55 | NUR ---
RN NOTE PT RECEIVED IN BED A/A/O X4. PT IS ON ROOM AIR SATING 100% , PT HAS UNLABORED BREATHING. SAFETY MEASURES IN PLACE CALL LIGHT IN REACH, BED AT LOWEST POSITION ,LOCKED ,SIDE RAILS UPX2.
[2020-02-27 20:00] VITALS: BP 117/72
[2020-02-27] MEDS: ENOXAPARIN SODIUM 40 MG/0.4 ML DISP.SYRIN SQ SCH (21:04)
[2020-02-28] VITALS: BP 119/51
[2020-02-28] MEDS: HYDROCODONE/APAP 5/325MG TABLET PO PRN ×5 (04:15→20:53)
[2020-02-28 05:54] LABS: BASOPHILS % (AUTO) 0.5 % (0.0-2.0); EOSINOPHILS % (AUTO) 3.4 % (0.0-6.0); HEMATOCRIT 39 % (39-51); HEMOGLOBIN 13.4 g/dL (13.5-17.5); LYMPHOCYTES # (AUTO) 1.8 /CMM (0.8-4.8); LYMPHOCYTES % (AUTO) 27.8 % (20.0-44.0); MEAN CORPUSCULAR HGB CONC 34 g/dl (31.0-36.0); MEAN CORPUSCULAR VOLUME 90 fL (80-96); MONOCYTES # (AUTO) 0.6 /CMM (0.1-1.30); MONOCYTES % (AUTO) 8.7 % (2.0-12.0); NEUTROPHILS % (AUTO) 59.6 % (43.0-81.0); PLATELET COUNT (AUTO) 384 /CMM (150-450); RED BLOOD CELL COUNT(AUTO) 4.32 MIL/uL (4.5-6.0); WHITE BLOOD COUNT (AUTO) 6.7 K/uL (4.3-11.0)
[2020-02-28 06:09] LABS: CALCIUM, SERUM 8.7 mg/dL (8.5-10.1); CREATININE 0.9 mg/dL (0.6-1.3); MAGNESIUM 1.9 mg/dL (1.8-2.4); PHOSPHORUS 4.4 mg/dL (2.5-4.9); POTASSIUM 3.5 mmol/L (3.5-5.1)
--- NOTE | 2020-02-28 07:25 | NUR ---
RN NOTE PT REMAINED STABLE, NO ACUTE CHANGES REPORT GIVEN TO INCOMING SHIFT.
--- NOTE | 2020-02-28 07:30 | NUR ---
MS SIDNEY AM NOTES RECEIVED PATIENT JUST CAME OUT OF BATHROOM, TO BED, AWAKE, A/O X4. RESPIRATIONS EVEN AND UNLABORED. 02 SAT 98% IN ROOM AIR. CLAIMS PAIN 7/10 GENERALIZED. WILL ADMINISTER PAIN MEDS IN A FEW. WITH LEFT EXTERNAL JUGULAR #20G, FLUSHES WELL, SITE CLEAR, ON REGULAR DIET, AMBULATORY, BED LOCKED AND IN LOWEST POSITION. SAFETY MEASURES IMPLEMENTED. CALL LIGHT WITHIN REACH. WILL CONT TO MONITOR
[2020-02-28] MEDS: PANTOPRAZOLE 40 MG TABLET.DR PO SCH (07:53)
[2020-02-28 08:00] VITALS: BP 112/70
[2020-02-28] MEDS: CHLORDIAZEPOXIDE HCL 25 MG CAPSULE PO SCH ×2 (08:19→16:10)
--- NOTE | 2020-02-28 09:30 | NUR ---
RN NOTES DUE MEDS GIVEN
--- NOTE | 2020-02-28 14:56 | NUR ---
SW provided the following resources to this patient: Substance Abuse resources provided included: [facility] Substance Abuse Self-Helpline ([facility]) ; CRI -[facility]LP [address] [facility] [place] [id number] ; [facility] [place] [address] [facility] [address] ; [facility] [address] [facility] [phone] ; [facility] [address] [facility] [phone] ; [facility] [address] [facility] [address] ; [facility] [address] [facility] [phone] ; [facility] Substance Abuse Helpline([facility])-[facility] [place] ; [facility] ; [employer] [place]; [facility] [place]; [facility] [place]; [facility] [place]; [facility] [place]; [facility] [place]; [facility] [place]; [facility]. [place]; Alcoholics Anonymous -SFV; Te-Tsqx-Cjxyxyt ; Marijuana Anonymous -SFV; Narcotics Anonymous www.na.org. Year-round shelters : [place] [facility] [address] [place] [place] [address] ; [facility] [facility] [address] [place] [address]; [facility] [address] [facility] [address] Hygiene: [facility]: [address] [place] ; [facility] [address] [facility] ; [facility] [address] [place] . Food Resources: [facility] at [facility]- [address] [place]; Meet Each Need wit Dignity ([facility]) [address] [facility]; [facility] [address] [facility]; [facility] [address] [facility]. Mental Health resources provided: [facility] [address] [place] [address] ; [facility] [address] [facility] [address], [place] [address] ; Christina Snyder [facility] [address] [place] [address] ; [facility] [address] [place] [address]
--- NOTE | 2020-02-28 15:16 | NUR ---
RN NOTES PATIENT SEEN BY BAND TUMBLER MELVIN EARLIER, AND TOLD HER THAT PATIENT WANTS TO CUT HIS WRIST. DR. SCHMIDT NOTIFIED. PER BAND TUMBLER, PATIENT COULD BE SEND TO [facility]. PAPERS PROCESSED. SPOKE WITH SKYLAR QUALITY IMPROVEMENT ANALYST AT THE FACILITY AND REQUESTING FOR MEDICAL DISCHARGE CLEARANCE FROM MD AND SOME NOTES FROM BAND TUMBLER. DR. SCHMIDT NOTIFIED OF REQUEST FOR MEDICAL DISCHARGE CLEARANCE NOTES.
--- NOTE | 2020-02-28 15:26 | NUR ---
This SW met the patient at bedside in [place], after being information by nursing that patient was asking to speak to a social media executive over the weekend. Patient is a 49-year-old male. Patient is alert and oriented x4. Patient confirmed date of , social security number, and current mailing address. Patient is homeless and reports to be homeless for the past 4 years. This SW initial met with this patient on 02/23, attempting to complete an assessment, however at the time patient reported that he was having a difficult time speaking due to pneumonia, and therefore SW was unable to complete the assessment. Today, patient reports that he is feeling better and is receptive to meeting with this SW. Patient informed this SW that per patients discussion with his physician, patient will be able to be discharged tomorrow 02/28, as patient mentioned to his physician that he receives his General Relief money tomorrow. SW assessed patients needs and discussed community resources for homeless individuals. Patient expressed agreement with received these resources, and therefore SW provided patient with homeless resource packet. SW spoke with SIDNEY Mendoza, as patient now has a discharge order. SW informed SIDNEY Mendoza about patients conversation regarding being discharged tomorrow. SIDNEY Mendoza informed patients physician, and then informed this SW that the patients discharge order is for today 02/27. SW informed patient that patients physician has cleared patient for discharge. Patient was unhappy and patient stated After, I leave here, I am just going to slit my wrist. SW asked patient to elaborate regarding this statement. Patient reported to this SW I cannot be out there. I do not function well out there. If you make me leave, I will leave and go slit my wrist. SW asked patient if he has had a history of suicidal ideation prior to current hospitalization. Patient reported that it was a few months ago. This SW asked the patient is he has been diagnosed with a mental illness. Patient reported that he has been diagnosed with schizophrenia. Patient also reported that he has been taking Seroquel but patient stated that doesnt mean I wont go ahead and slit my wrist. SW and patient discussed treatment option of voluntary psychiatric admission. Patient shook his head up and down while verbalizing Yes I want to go there. Throughout this assessment patient had a flat affect and patient was able to make needs known. SW notified SIDNEY Mendoza and station mechanic Soon regarding patients expressing suicidality. SIDNEY Mendoza also informed patients physician. Plan: SILVANO faxed clinicals to [facility] Intake fax # and javonied Josue tel # of the referral sent. This social media executive will wait to hear back from [facility] intake regarding status of referral. This social media executive will follow-up with [facility] if status update is not provided. SW to coordinate with Case Management team for safe transfer to [facility] pending acceptance.
--- NOTE | 2020-02-28 15:27 | NUR ---
This SW received a call from [facility], MD discharge note is needed. SW informed RN Kelly about this request. RN Kelly stated that RN Kelly would contact patient physician regarding this note.
--- NOTE | 2020-02-28 15:50 | NUR ---
RN NOTES PLACED A CALL THRU EPIC ANSWERING SERVICE FOR ROXANA KOHLI REGARDING PT NEEDS MEDICAL DISCHARGE CLEARANCE REQUESTED BY [facility]. CHARGE NURSE SOON, AWARE.
[2020-02-28 16:00] VITALS: BP 136/61
--- NOTE | 2020-02-28 17:10 | NUR ---
RN NOTES REPORT GIVEN TO [facility] STAFF EARLIER, HOWEVER, HE CALL BACK AND INFORMED US THAT THEIR OVERNIGHT CASHIER SKYLAR HAS NOT ACCEPTED THE PATIENT YET AND SAID THEY ARE STILL GONNA REVIEW THE CASE. NOELLE MUNOZ ANIMAL TRAINER NOTIFIED AND WILL CALL BACK.
--- NOTE | 2020-02-28 18:23 | NUR ---
MS RN CLOSING NOTES PATIENT IN BED RESTING, AWAKE, A/O X4. RESPIRATIONS EVEN AND UNLABORED. 02 SAT 98% IN ROOM AIR. PAIN MEDICATIONS ADMINISTERED ORDERED. WITH LEFT EXTERNAL JUGULAR #20G, FLUSHES WELL, SITE CLEAR, ON REGULAR DIET, AMBULATORY, BED LOCKED AND IN LOWEST POSITION. SAFETY MEASURES IMPLEMENTED. CALL LIGHT WITHIN REACH. ALL NEEDS MET AT THIS TIME. PM CARE DONE. NO OTHER SIGNIFICANT CHANGE IN CONDITION. WILL ENDORSE TO NEXT SHIFT FOR GAYLE.
--- NOTE | 2020-02-28 19:30 | NUR ---
MS RN NOTE [employer] DELIVERY DRIVER CALLED AND ASKING FOR MD DISCHARGE NOTE AND ALSO ALCOHOL LAB RESULT, RESULT IS NOT IN YET. FAXED THE MD DISCHARGE NOTE. WILL FOLLOW UP WITH THE DISCHARGE.
[2020-02-28 20:00] VITALS: BP 106/60
--- NOTE | 2020-02-28 20:00 | NUR ---
MS RN NOTE PT IN BED AWAKE. A/O X 4, NO SOB, NO DISTRESS OR DISCOMFORT NOTED. DENIES PAIN. PT IS EATING DINNER AT THIS TIME. EXPLAINED HIM ABOUT HIS DISCHARGE FROM THE HOSPITAL. LT EXTERNAL JUGLAR SL #20 G INTACT AND PATENT. VSS. CONTINUE TO MONITOR HIM. SIDE RAILS UP X 2 AND CALL LIGHT WITHIN REACH.
--- NOTE | 2020-02-28 20:36 | NUR ---
MS RN NOTE RECEIVED LAB RESULT OF ALCOHOL LEVEL LESS THAN 3. CALLED [facility] AND REPORT GIVEN TO NURSE RACQUEL. WAITING FOR AMBULANCE TO TRANSFER THE PT AROUND 9 PM.
[2020-02-28] MEDS: ENOXAPARIN SODIUM 40 MG/0.4 ML DISP.SYRIN SQ SCH (20:54)
--- NOTE | 2020-02-28 20:55 | NUR ---
MS RN NOTE PT C/O PAIN ALL OVER 8/10 DULL ACHING, NORCO 2 TABS PO GIVEN. VSS. CONTINUE TO MONITOR HIM.
--- NOTE | 2020-02-28 22:20 | NUR ---
MS RN NOTE AMBULANCE PERSONAL ARRIVED REPORT GIVEN TO THEM BY CHARGE NURSE ALSO EXTERNAL JUGULAR SL DC'D BY JOHNNA SECRUED WITH 2X2 GAUZE. DISCHARGE INSTRUCTIONS GIVEN. ALSO BELONGINGS GIVEN. PT SIGNED THE PAPER WORK. NO DISTRESS OR DISCOMFORT NOTED. DENIES PAIN. PT LEFT THE ROOM VIA GURNEY TO [facility] IN [place]. Addendum: 02/28/20 at 2314 by BOBBY SANTOYO RN FACILITY IN [facility] IN [place].
== END 2020-02-28 23:05 | DRG 133 ==
LOC: ER 16:53 → ICU 18:50 → TELE1 02-23 21:10 → MEDSG1 02-24 10:25
PROVIDERS: ADMIT Nurse Practitioner Acute Care; ATTEND Student in an Organized Health Care Education/Training Program
PROC: 5A1935Z Respiratory Ventilation, Less than 24 Consecutive Hours (ICD-10-PCS; principal; 2020-02-22)
PROC: 0BH18EZ Insertion of Endotracheal Airway into Trachea, Via Natural or Artificial Opening Endoscopic (ICD-10-PCS; 2020-02-22)
DX: J96.01 Acute respiratory failure with hypoxia (principal); J69.0 Pneumonitis due to inhalation of food and vomit; E87.6 Hypokalemia; K86.1 Other chronic pancreatitis; J98.11 Atelectasis; E87.2 Acidosis; F10.139 Alcohol abuse with withdrawal, unspecified; F10.129 Alcohol abuse with intoxication, unspecified; G89.29 Other chronic pain; D72.829 Elevated white blood cell count, unspecified; D69.59 Other secondary thrombocytopenia; I95.9 Hypotension, unspecified; Y90.8 Blood alcohol level of 240 mg/100 ml or more; E78.1 Pure hyperglyceridemia; K76.0 Fatty (change of) liver, not elsewhere classified
CPT/HCPCS: 31720; 36415; 36600; 70450-TC; 71045-TC; 71260-TC; 72125-TC; 80048-TC; 80053-TC; 80061-TC; 80076-TC; 80202-TC; 81000-TC; 82803-TC; 83605-TC; 83735-TC; 84100-TC; 84439-TC; 84443-TC; 84484-TC; 85025-TC; 87040-TC; 87081-TC; 87086-TC; 92526; 92611-TC; 93307-TC; 94002-TC; 94003-TC; 94760-TC; 97116-TC; 97530-TC; 99082-TC; C9113; G0378; G0480; J1650; J2060; J2270; J2543; J3010; J3370; J3480; J3490; J7030; J7050; J7060; Q2036; Q9967

== ENCOUNTER 2020-03-09 22:42 | Emergency (ER) | payer MEDICAID ==
[~2020-03-09] VITALS: Ht 165.1 cm; Wt 106.6 kg
[~2020-03-09 22:42] MED LIST: PRAZ1CAP17 PO
[2020-03-09 22:58] LABS: BASOPHILS # (AUTO) 0.2 /CMM (0.0-0.2); HEMATOCRIT 45 % (39-51); HEMOGLOBIN 15.2 g/dL (13.5-17.5); LYMPHOCYTES # (AUTO) 1.4 /CMM (0.8-4.8); LYMPHOCYTES % (AUTO) 15.5 % (20.0-44.0); MEAN CORPUSCULAR HGB CONC 34 g/dl (31.0-36.0); MEAN CORPUSCULAR VOLUME 90 fL (80-96); MONOCYTES # (AUTO) 0.5 /CMM (0.1-1.30); MONOCYTES % (AUTO) 5.9 % (2.0-12.0); NEUTROPHILS % (AUTO) 76.6 % (43.0-81.0); PLATELET COUNT (AUTO) 514 /CMM (150-450); RED BLOOD CELL COUNT(AUTO) 4.99 MIL/uL (4.5-6.0); WHITE BLOOD COUNT (AUTO) 9.2 K/uL (4.3-11.0)
--- NOTE | 2020-03-09 23:06 | NUR ---
PT BIBSELF +SI PLAN TO CUT WRIST, DENIES HI. PT ADMITS TO DRINKING ALCOHOL. PT AOX4 RR EVEN AND UNLABORED. NO SOB NOTED. NO NVD AT THIS TIME. PT GOWNED, PERSONAL BELONGINGS PLACED IN SECURED LOCKER. SECURITY AT BEDSIDE FOR WANDING. NO ACUTE DISTRESS NOTED.
[2020-03-09 23:07] LABS: BILIRUBIN,URINE Negative (NEGATIVE); BLOOD, URINE Negative Ery/uL (NEGATIVE); COLOR,URINE YELLOW (YELLOW); LEUKOCYTE ESTERASE ,URINE Negative (NEGATIVE); NITRITE, URINE Negative (NEGATIVE); PH,URINE 5.5 (5.0-8.0); PROTEIN,URINE Negative (NEGATIVE); UGLUCOSE Negative (NEGATIVE); UROBILINOGEN,URINE 0.2 EU/dL (0.2)
[2020-03-09 23:09] LABS: CALCIUM, SERUM 8.9 mg/dL (8.5-10.1); CARBON DIOXIDE 29 mmol/L (21-32); CHLORIDE 102 mmol/L (98-107); GLUCOSE 98 mg/dL (74-106); SODIUM SERUM 141 mmol/L (136-145); UREA NITROGEN, BLOOD 15 mg/dL (7-18)
[2020-03-09 23:14] LABS: ALANINE AMINOTRANSFERASE 29 U/L (12-78); ALBUMIN 4.4 g/dL (3.4-5.0); ALCOHOL, BLOOD 219 mg/dL (0-0); ALKALINE PHOSPHATASE 87 U/L (46-116); ASPARTATE AMINOTRANSFERASE 30 U/L (15-37); BILIRUBIN,DIRECT 0.1 mg/dL (0.0-0.2); BILIRUBIN,TOTAL 0.3 mg/dL (0.2-1.0)
[2020-03-09 23:16] LABS: ACETAMINOPHEN < 10 ug/ml (10-30)
[2020-03-10] MEDS ORDERED: ACETAMINOPHEN 325 MG TABLET ONE (01:10)
[2020-03-10] MEDS ORDERED: ACETAMINOPHEN 325 MG TABLET PO ONE (01:30)
--- NOTE | 2020-03-10 05:13 | NUR ---
Patient is resting comfortably in bed with eyes closed. Easily aroused. VSS
--- NOTE | 2020-03-10 06:58 | NUR ---
PT ASLEEP. VSS. NO ACUTE DISTRESS NOTED. WILL CONTINUE TO MONITOR THIS PT
--- NOTE | 2020-03-10 07:40 | NUR ---
PT COMPLAINING OF WITHDRAWAL SYMPTOMS FROM ALCOHOL, STATES THAT HE FEELS SHAKY AND KEEPS HAVING TREMORS. DR. ANDINO NOTIFIED.
[2020-03-10] MEDS ORDERED: CHLORDIAZEPOXIDE HCL 25 MG CAPSULE ONE (07:45)
[2020-03-10] MEDS ORDERED: CHLORDIAZEPOXIDE HCL 25 MG CAPSULE PO ONE (08:00)
--- NOTE | 2020-03-10 09:42 | NUR ---
PT SEEN BY ROBBY CRYOGENIC TRANSPORT DRIVER
--- NOTE | 2020-03-10 11:31 | NUR ---
RECIEVED A CALL FROM LYNETTE AT [facility]. PT ACCEPTED AT [place]. GOING TO ROOM 628-B. UNDER THE CARE OF DR. PARADA/DR. SPRINGER. NUMBER FOR REPORT IS [phone] NURSE NAME IS MICHELLE.
--- NOTE | 2020-03-10 11:43 | NUR ---
REPORT GIVEN TO KERRIE AT [facility].
--- NOTE | 2020-03-10 11:56 | NUR ---
CALLED [facility] [place] FOR TRANSPORT TO [facility]. RESERVATION NUMBER [id number]. WILL CALL BACK FOR ETA.
--- NOTE | 2020-03-10 12:10 | NUR ---
[facility] et[facility] 1400
--- NOTE | 2020-03-10 12:46 | NUR ---
10:20am SILVANO spoke with Mehdi at [facility] at 10:20am. Per Mehdi, clinicals have not been reviewed yet. SILVANO referred the patient to [facility]. This social media marketing manager will wait to hear back from [facility] (fax) and Josue regarding status of referral. This social media marketing manager will follow-up with [facility] if status update is not provided.
--- NOTE | 2020-03-10 12:46 | NUR ---
9:30am SW received a call from [facility] S[facility] requesting a social security assessor consultation for this patient. Patient is a 49-year-old male. Patient is alert and oriented x4. Patient was lying in bed. Patient was receptive to speaking to this SW but stated did not want to look at this SW. Patient is homeless and reports to be homeless for the past 4 years. Patient is known to this SW from previous admission at [facility] on 02/23. Patient reports that he is suicidal with a plan to cut his wrist. Patient was discharge from [place] [id number] yesterday 03/09 from voluntary in-patient psychiatric hospitalization. Patient reports a mental health diagnosis of Schizophrenia. Patient reports that he would like to be referred for psychiatric treatment as he does not feel well. Patient denies visual and auditory hallucinations. Patient denies homicidal ideation. Patient denies current use of drugs. Patient did report use of alcohol and patients lab results were positive for alcohol. SW assessed patients needs and discussed community resources for homeless individuals. Patient declined these community resources. SW and patient discussed voluntary psychiatric hospitalization; patient was in agreement for voluntary hospitalization. SW discussed referral option to [facility] and patient agreed to be referred to [facility]. Patient was able to make needs known throughout this assessment. Patient remained lying in the bed with no eye contact to this SW. Patient was calm and tone of voice was calm and soft. Plan: SW to fax clinicals to [facility] fax # and notify [place] call center , select option 2. This 7th grade social studies teacher will wait to hear back from [facility] intake regarding status of referral. This 7th grade social studies teacher will follow-up with [place] if status update is not provided.
--- NOTE | 2020-03-10 12:46 | NUR ---
9:50am SW spoke with Mehdi at [facility] at 9:51am. Per Mehdi, clinicals have not been reviewed yet. This SW to follow up with Mehdi at 10:20am. This psychologist social will wait to hear back from [facility] intake regarding status of referral. This psychologist social will follow-up with [facility] if status update is not provided.
[2020-03-10] MEDS ORDERED: TOPI50TA24 PO (13:44)
[2020-03-10] MEDS ORDERED: OMEP20CA15 PO (13:44)
[2020-03-10] MEDS ORDERED: QUET200T PO (13:44)
[2020-03-10] MEDS ORDERED: TRAZ-252 PO (13:44)
[2020-03-10] MEDS ORDERED: ESCI20TA PO (13:44)
--- NOTE | 2020-03-10 15:28 | NUR ---
transported to [facility] in stable condition.
[2020-03-10 15:29] VITALS: BP 144/99
== END 2020-03-10 15:31 ==
LOC: ER 22:49
DX: R45.851 Suicidal ideations (principal); F10.10 Alcohol abuse, uncomplicated; Y90.7 Blood alcohol level of 200-239 mg/100 ml; F19.10 Other psychoactive substance abuse, uncomplicated; Z20.828 Contact with and (suspected) exposure to other viral communicable diseases; Z86.19 Personal history of other infectious and parasitic diseases
CPT/HCPCS: 36415 ×2; 80048; 80076; 80299; 80307; 80320 ×2; 81001; 85025; 87426; 99285; C9803; G0480